=== PATIENT | male | born 1995 | race Caucasian/White ===

== ENCOUNTER → 2017-02-27 | Outpatient (CLI) | payer BC ==
--- NOTE | 2017-02-28 08:50 | PAP/PSG TECHNICIAN REPORT ---
[facility] Sports Leadership Instructor Polysomnogram Report Study name: None Report date: 02/28/2017 Study date: 02/27/2017 Referring Physician: MILDRED HAIR M.D. Name: CONRADO FIERRO Interpreting Physician: Cyrus Dougherty M.D. Date of : 1995 Sports Leadership Instructor: Quyen Leslie PSGT. Sex: Male Age: 21 StudyType: PSG Weight: 183 lbs Height: 21 years, Height 5' 11" Neck Circum: 16 inches BMI: 25.52 Medications: NO REPORTED MEDICATIONS Patient History 21 YR. 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 PATIENT ALSO STATES THAT HE WILL NEED UP AT 5 AM FOR WORK PRIOR TO CLASS.ESS= 13, NECK = 16 INCHES. Parameters Monitored NPSG: E1-M2, E2-M1, Fp1-M2, Fp2-M1, F3-M2, F4-M2, F4-M1, C3-M2, C4-M2, C4-M1, O1-M2, O2-M2, O2-M1, T3-M2, T4-M1, P3-M2, P4-M1, CHIN1, CHIN2, HR, EKG, Legs, PFLOW, SNOR, FLOW, CFLOW, Tidal Volume, THOR, ABDO, SpO2, PLTH, CPRESS, ETCO2 Wave, ETCO2, pH Sleep Architecture Sleep Stages Time at Lights Off 9:29:43 PM STAGES Time (min.) TST (%) Time at Lights On 5:00:13 AM Wake 192.5 -- Total Recording Time (TRT) 452.00 min. N1 17.0 7 Total Sleep Period (TSP) 447.0 min. N2 177.5 69 Total Sleep Time (TST) 258.0min. N3 37.0 14 Awake Time 192.5 min. REM 26.5 10 Wake after Sleep Onset 189.0 min. Sleep Efficiency (SE) 57 % Sleep Onset Latency (MARYANN) 3.5 min. Number of Stage 1 Shifts None Awakenings 6 Stage Changes 25 Number of REM periods 1 REM 26.5 10 REM Latency 319.5 min. NREM 231.5 90 Body Position Analysis Supine Right Left Side Prone Vertical Total Sleep Time (min.) 176.5 82.7 53.8 136.47 0.0 8.5 Total Sleep Time (%) 45% 32% 21% 53 0% 100% Total Sleep Time REM (min.) 26.5 0.0 0.0 None 0.0 0.0 Total Sleep Time NREM (min.) 90.5 82.7 53.8 None 0.0 4.5 Intermittent Wake (min.) 59.5 15.1 114.0 None 0.0 4.0 Total Sleep Period (%) 39% None None None None None Arousals Myoclonus (PLM) * Events Count Index Events Count Index Spontaneous 58 13 Events Awake (PLMW) 11 3.4 Respiratory 15 3.5 Events Asleep w/ Arousal (PLMA) 7 1.6 PLM 7 2 Events Asleep w/o Arousal (PLMS) 103 24.0 Snoring 11 3 Total Asleep 110 25.6 Total 91 21 Total 121 16 Respiratory Analysis * CA OA MA CH H RERA Total Count 0 2 0 0 33 0 35 Index 0.0 0.5 0.0 0 7.7 0 8.1 Mean Duration 0.0 26.2 0.0 0.00 26.8 0.0 26.7 Longest Duration 0.0 30.6 0.0 0.00 0.0 0.0 57.1 Respiratory Event Summary Total Supine ~Supine Right Left Prone REM NREM Apneas Count 2 0 2 2 0 N/A 0 2 Index 0.5 0 1 1.5 0.0 N/A 0 1 Hypopneas (4% Desat) Count 33 29 4 2 1 N/A 8 25 Index 7.7 14.9 2 1.5 1.1 N/A 18.1 6.5 Apneas & All Hypopneas Count 35 29 6 4 1 N/A 8 27 Index 8.1 15 3 3 1 N/A 18.1 7.0 Respiratory Events (Shellfish Grower+All Hyp+RERA) Count 35 29 6 4 1 N/A 8 27 Index 8.1 15 3 2.9 1.1 N/A 18.1 7.0 Respiratory Related Arousal Count 15 29 2 2 0 N/A 1 14 Index 3.5 7 1 1 0 N/A 2 4 Snoring Analysis Supine Right Left Prone REM NREM Total Snore duration 4.0 min Snores count 89 10 23 N/A 9 122 131 Snore mean duration 1.8 Sec Snores index 46 7 26 N/A 20.4 31.6 30.5 TST with snoring (%) 1.5% Desaturation Event Summary: Minimum %SpO2 Event Count Mean/Min/Max Duration(sec.) Desaturation Index % Time In Bed > 90 38 35.0 / 12.0 / 60.0 5.1 99.4 86 - 90 0 N/A 0.0 0.6 81 - 85 0 N/A 0.0 0.0 76 - 80 0 N/A 0.0 0.0 71 - 75 0 N/A 0.0 0.0 66 - 70 0 N/A 0.0 0.0 61 - 65 0 N/A 0.0 0.0 56 - 60 0 N/A 0.0 0.0 51 - 55 0 N/A 0.0 0.0 < 50 0 N/A 0.0 0.0 Total REM NREM Awake <50% 0.0 min. 0.0 min. 0.0 min. 0.0 min. 51 - 60% 0.0 min. 0.0 min. 0.0 min. 0.0 min. 61 - 70% 0.0 min. 0.0 min. 0.0 min. 0.0 min. 71 - 80% 0.0 min. 0.0 min. 0.0 min. 0.0 min. 81 - 90% 2.5 min. 0.5 min. 1.9 min. 0.1 min. 91 - 100% 443.7 min. 26.0 min. 229.5 min. 188.3 min. Average 95 95 94 95 Minimum SpO2 89 89 89 90 Desaturation Event Index 5.1 22.6 7.3 0.0 # Desat. Events below 89% N/A N/A N/A N/A Time(%) with Saturation below 89% 0.0 0.0 0.0 0.0 Time(min.) with Saturation below 89% 0.0 0.0 0.0 0.0 Time (mins) REM (mins) NREM (mins) % of TST SpO2 Below 90% 13 4 N9 0.2 SpO2 Below 88% 0 0 0 0 Heart Rate Analysis Min (bpm) Max (bpm) Average (bpm) Awake 40 127 54 NREM 38 82 50 REM 45 66 55 Overall 38 82 50 Supplemental O2 Values Minimum O2 level: None Value Start Time End Time Sports Leadership Instructor Comments PSG Study Mr. Fierro Snoring was noted and scored as a zero on a scale of 1 through 5. (0=no snoring, 5=snoring loud enough to be heard through a closed door or down the [address] way) Mr. Fierro awoke to use the restroom zero times during the night. Mr. Fierro stated, I went to bed to early. The final report will be interpreted and signed by a sleep physician. The completed physician report will then be placed in the patient medical record. Patient slept for a short period then woke for a very long time. When patient did sleep he did have some respiratory events and he would move his head from side to side often. He did try to sleep he did not have any electronics on while in bed. Therapy (cm H2O) 0 TIB (min.) 450.5 TST (min.) 258.0 Sleep Onset (min.) 3.5 REM Onset From Sleep (min.) 319.5 Sleep Efficiency % 57 Wakefulness (%) 43 Wakefulness (min.) 192.5 NREM 1 (%) 7 NREM 1 (min.) 17.0 NREM 2 (%) 69 NREM 2 (min.) 177.5 NREM 3 (%) 14 NREM 3 (min.) 37.0 REM (%) 10 REM (min.) 26.5 # Arousals 91 Arousal Index 21 # Snore 131 Snore Index 30.5 AHI 8.1 AHI Supine 15 AHI Non-Supine 3 NREM AHI 7.0 REM AHI 18.1 RDI 8.1 # Obstructive Apnea 2 # Central Apnea 0 # Mixed Apnea 0 # Hypopneas 33 RERAs 0 Total Respiratory Events 35 Time Below SpO2 89% (min.) 0.0 Mean NREM SpO2 (%) 94 Mean REM SpO2 (%) 95 Mean Sleep SpO2 (%) 94 Min NREM SpO2 (%) 89 Min REM SpO2 (%) 89 Position Supine (min.) 176.5 Position Non-supine (min.) 141.0 LM Index Sleep 25.6 LM Index NREM 22.8 LM Index REM 49.8 Mean Heart Rate (bpm) 50 Min Heart Rate (bpm) 38
--- NOTE | 2017-03-02 12:43 | POLYSOMNOGRAPH REPORT ---
CLINICAL DATA: A 21-year-old male with BMI of 24.5 referred by Lolis Norris with history of snoring and witnessed apnea with family history of sleep apnea. His Turner Sleepiness Score is elevated at 13/24. SLEEP ARCHITECTURE: Total recording time was 452 minutes. Total sleep period was 447 minutes. Total sleep time was 258 minutes divided between 231.5 minutes of NREM sleep and 26.5 minutes of REM sleep. Sleep onset latency was 3.5 minutes. REM latency was delayed at 319.5 minutes. Sleep efficiency was reduced at 57%. Awake after sleep onset was markedly elevated at 189 minutes. Sleep consisted of stage N1 7%, stage N2 69%, stage N3 14%, REM 10%. AROUSAL DATA: 91 arousals were recorded for an index of 21 per hour. PLM DATA: Mildly elevated limb movements during sleep were noted. There were 110 limb movements during sleep noted for an index of 25.6 per hour with arousal index of 1.6 per hour. RESPIRATORY DATA: Mild sleep apnea was documented. The AHI was 8.1. There were 2 obstructive apneic episodes, the longest duration of which was 30.6 seconds. There were 33 hypopneic episodes with a mean duration of 26.8 seconds. OXIMETRY DATA: No hypoxemia was seen. Oxygen alessio was 89%. Mean saturation was 95%. EKG: Heart rates ranged from 38 to 82 beats per minute. No arrhythmias were noted. DIRECTOR SALES'S COMMENTS: The patient had no significant snoring. He had some mild sleep apnea noted. He slept for a short period of time and then was awake for several hours. He moved his head from side to side often. IMPRESSION: Mild sleep apnea/hypopnea with an AHI of 8.1 without nocturnal hypoxemia. RECOMMENDATIONS: The patient may benefit from weight loss, positional therapy, use of an oral appliance, or CPAP. Clinical correlation is needed. [facility]
== END | disposition home or self-care (01) ==
LOC: C.NEUR 20:00
PROVIDERS: ATTEND Physician Assistant Medical
DX: G47.30 Sleep apnea, unspecified (principal); R06.83 Snoring